=== PATIENT | female | born 1975 | race Caucasian/White ===

== ENCOUNTER → 2016-07-30 | Outpatient (REF) | payer OTHER, MEDICAID ==
[2016-08-02 00:19] LABS: Lyme Disease IgG/IgM Antibodie <0.91 ISR (0.00-0.90); Lyme Disease IgM Ab Quantitati <0.80 index (0.00-0.79)
== END ==
LOC: M SFHCLERA 19:19
PROVIDERS: ATTEND Nurse Practitioner Family
DX: L03.114 Cellulitis of left upper limb (principal)

== ENCOUNTER → 2017-01-20 | Outpatient (CLI) | payer OTHER ==
[2017-01-20 10:13] LABS: BASO # 0.1 10^3/uL (0.0-0.2); BASO % 0.6 % (0.0-1.0); EOS # 0.2 10^3/uL (0.0-0.50); EOS % 2.2 % (0.0-3.0); IMMATURE GRANULOCYTE % 0.4 % (0-0); LYMPH # 2.3 10^3/uL (1.5-4.5); MEAN CORPUSCULAR HEMOGLOBIN 30.9 pg (27.0-33.0); MEAN CORPUSCULAR HGB CONC 33.7 g/dl (32.0-36.5); MEAN CORPUSCULAR VOLUME 91.7 fl (80.0-96.0); MONO # 0.6 10^3/uL (0.0-0.8); MONO % 5.9 % (0.0-5.0); NEUTROPHILS # 6.4 10^3/uL (1.8-7.7); NEUTROPHILS % 66.9 % (36.0-66.0); PLATELET COUNT, AUTOMATED 337 10^3/uL (150-450); WHITE BLOOD COUNT 9.6 10^3/uL (4.0-10.0)
[2017-01-20 10:57] LABS: VITAMIN B12 LEVEL 695 PG/ML (247-911)
[2017-01-20 11:00] LABS: ALBUMIN 3.4 GM/DL (3.2-5.2); ALBUMIN/GLOBULIN RATIO 0.94 (1.00-1.93); ALKALINE PHOSPHATASE 108 U/L (45-117); ALT/SGPT 33 U/L (12-78); ANION GAP 7 MEQ/L (8-16); AST/SGOT 16 U/L (7-37); BILIRUBIN,TOTAL 0.3 MG/DL (0.2-1.0); BLOOD UREA NITROGEN 13 MG/DL (7-18); CALCIUM LEVEL 8.6 MG/DL (8.5-10.1); CARBON DIOXIDE LEVEL 25 MEQ/L (21-32); CHLORIDE LEVEL 107 MEQ/L (98-107); CHOLESTEROL LEVEL 224 MG/DL (<200); CREATININE FOR GFR 0.72 MG/DL (0.55-1.02); GLOMERULAR FILTRATION RATE > 60.0 (>58); GLUCOSE, FASTING 99 MG/DL (70-105); POTASSIUM SERUM 4.1 MEQ/L (3.5-5.1); SODIUM LEVEL 139 MEQ/L (136-145); TRIGLYCERIDES LEVEL 170 MG/DL (<150)
== END ==
LOC: M LAB 09:49
PROVIDERS: ATTEND Registered Nurse Psychiatric/Mental Health
DX: F31.81 Bipolar II disorder (principal)

== ENCOUNTER → 2017-02-09 | Outpatient (CLI) | payer OTHER | LOC: M LAB 07:17 | PROVIDERS: ATTEND Registered Nurse Psychiatric/Mental Health | DX: F31.81 Bipolar II disorder (principal) ==

== ENCOUNTER → 2017-02-18 | Outpatient (CLI) | payer OTHER | LOC: M LAB 08:42 | PROVIDERS: ATTEND Registered Nurse Psychiatric/Mental Health | DX: F31.81 Bipolar II disorder (principal); Z79.899 Other long term (current) drug therapy ==

== ENCOUNTER → 2017-04-13 | Outpatient (CLI) | payer OTHER ==
[2017-04-13 10:24] LABS: ALBUMIN 3.4 GM/DL (3.2-5.2); ALBUMIN/GLOBULIN RATIO 0.92 (1.00-1.93); ALKALINE PHOSPHATASE 110 U/L (45-117); ALT/SGPT 41 U/L (12-78); AST/SGOT 22 U/L (7-37); BILIRUBIN,DIRECT 0.1 MG/DL (0.0-0.2); BILIRUBIN,TOTAL 0.5 MG/DL (0.2-1.0); TOTAL PROTEIN 7.1 GM/DL (6.4-8.2)
[2017-04-13 10:28] LABS: LITHIUM LEVEL 0.99 MEQ/L (0.60-1.20)
== END ==
LOC: M LAB 09:10
DX: F31.81 Bipolar II disorder (principal)
CPT/HCPCS: 80178

== ENCOUNTER → 2017-04-16 | Outpatient (REF) | payer OTHER, MEDICAID ==
[2017-04-16 16:38] LABS: FREE T4 0.89 NG/DL (0.76-1.46)
[2017-04-16 18:15] LABS: CHLAMYDIA DNA AMPLIFICATION NEGATIVE (NEGATIVE); GC DNA AMPLIFICATION NEGATIVE (NEGATIVE)
== END ==
LOC: M SFHCLERA 11:41
DX: Z97.5 Presence of (intrauterine) contraceptive device (principal); R94.6 Abnormal results of thyroid function studies
CPT/HCPCS: 84443

== ENCOUNTER → 2017-04-29 | Outpatient (REF) | LOC: M SMT 10:33 | DX: Z02.9 Encounter for administrative examinations, unspecified (principal) ==

== ENCOUNTER → 2017-10-05 | Outpatient (CLI) | payer OTHER ==
[2017-10-05 12:21] LABS: FOLATE 9.7 NG/ML; VITAMIN B12 LEVEL 334 PG/ML
[2017-10-05 12:40] LABS: ALBUMIN 3.4 GM/DL (3.2-5.2); ALBUMIN/GLOBULIN RATIO 0.94 (1.00-1.93); ALKALINE PHOSPHATASE 78 U/L (45-117); ALT/SGPT 31 U/L (12-78); ANION GAP 11 MEQ/L (8-16); AST/SGOT 18 U/L (7-37); BILIRUBIN,TOTAL 0.3 MG/DL (0.2-1.0); BLOOD UREA NITROGEN 14 MG/DL (7-18); CALCIUM LEVEL 8.6 MG/DL (8.5-10.1); CARBON DIOXIDE LEVEL 18 MEQ/L (21-32); CHLORIDE LEVEL 113 MEQ/L (98-107); CPK CREATINE PHOSPHOKINASE 29 U/L (26-192); CREATININE FOR GFR 0.76 MG/DL (0.55-1.30); FREE T4 1.04 NG/DL (0.76-1.46); GLOMERULAR FILTRATION RATE > 60.0 (>58); GLUCOSE, FASTING 89 MG/DL (70-100); RHEUMATOID FACTOR QUANT < 10.0 IU/ML (<15.0); SODIUM LEVEL 142 MEQ/L (136-145)
[2017-10-05 15:35] LABS: ESTIMATED AVERAGE GLUCOSE 105 MG/DL (60-110); HEMOGLOBIN A1c 5.3 %
[2017-10-05 15:47] LABS: BASO % 0.4 % (0.0-1.0); EOS # 0.3 10^3/uL (0.0-0.50); EOS % 2.8 % (0.0-3.0); HEMATOCRIT 42.1 % (36.0-47.0); HEMOGLOBIN 14.2 g/dl (12.0-15.5); IMMATURE GRANULOCYTE % 0.4 % (0-3.0); LYMPH # 2.6 10^3/uL (1.5-4.5); LYMPH % 28.1 % (24.0-44.0); MEAN CORPUSCULAR HEMOGLOBIN 30.9 pg (27.0-33.0); MEAN CORPUSCULAR HGB CONC 33.7 g/dl (32.0-36.5); MEAN CORPUSCULAR VOLUME 91.5 fl (80.0-96.0); MONO # 0.5 10^3/uL (0.0-0.8); MONO % 5.7 % (0.0-5.0); NEUTROPHILS # 5.7 10^3/uL (1.8-7.7); NEUTROPHILS % 62.6 % (36.0-66.0); PLATELET COUNT, AUTOMATED 281 10^3/uL (150-450); RED CELL DISTRIBUTION WIDTH 12.6 % (11.5-14.5); WHITE BLOOD COUNT 9.2 10^3/uL (4.0-10.0)
[2017-10-05 16:15] LABS: ERYTHROCYTE SEDIMENTATION RATE 15 mm/hr (0-20)
[2017-10-08 10:47] LABS: ANTINUCLEAR ANTIBODIES DIRECT Negative (Negative); STRIATIONAL ANTIBODIES Negative (Neg:<1:40); VITAMIN E(ALPHA TOCOPHEROL) 10.5 mg/L (7.0-25.1); VITAMIN E(GAMMA TOCOPHEROL) 1.8 mg/L (0.5-5.5)
[2017-10-11 14:28] LABS: ALDOLASE 5.2 U/L (3.3-10.3); VITAMIN B1 LEVEL WHOLE BLOOD 114.9 nmol/L (66.5-200.0); VITAMIN B6,PYRIDOXAL PHOSPHATE 2.7 ug/L (2.0-32.8)
[2017-10-11 14:28] LABS: ACETYLCHOLINE RCPTOR BINDING A < 0.03 nmol/L (0.00-0.24)
== END ==
LOC: M LAB 10:30
DX: M62.81 Muscle weakness (generalized) (principal); G70.9 Myoneural disorder, unspecified; E11.9 Type 2 diabetes mellitus without complications; Z13.29 Encounter for screening for other suspected endocrine disorder
CPT/HCPCS: 82550

== ENCOUNTER → 2017-10-21 | Outpatient (REF) | payer OTHER, MEDICAID | LOC: M SFHCLERA 15:04 | DX: R30.0 Dysuria (principal) ==

== ENCOUNTER → 2018-07-29 | Outpatient (REF) | payer OTHER, MEDICAID ==
[2018-07-29 20:25] LABS: BASO # 0.1 10^3/uL (0.0-0.2); BASO % 0.7 % (0.0-1.0); EOS # 0.1 10^3/uL (0.0-0.50); EOS % 0.8 % (0.0-3.0); HEMATOCRIT 46.6 % (36.0-47.0); HEMOGLOBIN 15.8 g/dl (12.0-15.5); LYMPH # 2.5 10^3/uL (1.5-4.5); LYMPH % 27.8 % (24.0-44.0); MEAN CORPUSCULAR HEMOGLOBIN 32.5 pg (27.0-33.0); MEAN CORPUSCULAR HGB CONC 33.9 g/dl (32.0-36.5); MEAN CORPUSCULAR VOLUME 95.9 fl (80.0-96.0); MONO # 0.6 10^3/uL (0.0-0.8); MONO % 7.2 % (0.0-5.0); NEUTROPHILS # 5.7 10^3/uL (1.8-7.7); NEUTROPHILS % 63.3 % (36.0-66.0); PLATELET COUNT, AUTOMATED 280 10^3/uL (150-450); RED BLOOD COUNT 4.86 10^6/uL (4.00-5.40); WHITE BLOOD COUNT 8.9 10^3/uL (4.0-10.0)
== END ==
LOC: M SFHCLERA 15:12
PROVIDERS: ATTEND Family Medicine
DX: N63.10 Unspecified lump in the right breast, unspecified quadrant (principal)

== ENCOUNTER → 2018-08-12 | Outpatient (CLI) | payer MEDICAID, OTHER ==
--- NOTE | 2018-08-12 15:01 | REP ---
DIGITAL DIAGNOSTIC BILATERAL MAMMOGRAPHY WITH CAD, 3D TOMOGRAPHY, AND FOCUSED RIGHT BREAST SONOGRAPHY: HISTORY: Right breast lump at approximately 11-o'clock position. The lump is present times 1 week and is mobile and tender. No comparison breast imaging. A remote prior history of right breast abscess. TECHNIQUE: A skin marker is affixed to the skin at the site of the palpable lump which projects at the level of the right axilla. Routine views of the right breast are augmented by magnified focal spot compression images and 3D tomography. MAMMOGRAPHIC FINDINGS: Scattered fibroglandular elements are seen bilaterally. Normal appearing lymph nodes are noted in each axilla. No masses seen at the site of the palpable lump. The adjacent breast parenchyma is extensively fat replaced at the site of the lump. No microcalcification or architectural distortion is seen in either breast. SONOGRAPHIC FINDINGS: The right breast in the axillary tail is scanned sonographically. Fairly homogeneous breast parenchymal texture is seen. No soft tissue mass is seen. No cyst or abnormal lymph node is appreciated. IMPRESSION: BIRADS 1: BI-RADS/ACR category 1 mammogram. Negative Mammogram. BIRADS category 1 negative bilateral breast imaging findings. Clinical followup is advised. This negative report should not dissuade one from biopsy of a palpable lump depending on its clinical characteristics. The patient states she had a clinical breast exam in June 2018. The patient letter being requested M2. This mammogram was interpreted with the aid of an FDA-approved computer-aided detection system. Electronically Signed by Marlo Ashford MD 08/12/2018 03:10 P
== END ==
LOC: M RAD 12:56
PROVIDERS: ATTEND Family Medicine
DX: N63.10 Unspecified lump in the right breast, unspecified quadrant (principal)
CPT/HCPCS: 76642; 77066; G0279

== ENCOUNTER → 2018-12-09 | Outpatient (REF) | payer OTHER, MEDICAID ==
[2018-12-09 13:42] LABS: FOLLICLE STIMULATING HORMONE 5.1 mIU/mL; FREE T4 1.04 NG/DL (0.76-1.46); LUTEINIZING HORMONE 6.4 mIU/mL; THYROID STIMULATING HORMONE 1.73 uIU/ML (0.358-3.740)
[2018-12-15 10:35] LABS: TESTOSTERONE FREE (DIRECT) 1.5 pg/mL (0.0-4.2)
== END ==
LOC: M LAB REF 12:32
PROVIDERS: ATTEND Obstetrics & Gynecology
DX: F32.81 Premenstrual dysphoric disorder (principal)

== ENCOUNTER 2018-12-29 09:25 | Day surgery (SDC) | payer OTHER ==
[~2018-12-29] VITALS: Ht 154.9 cm; Wt 95.6 kg
[~2018-12-29 09:25] MED LIST: CHOL100029 PO; LR 1,000 ML IV ONE; MELATAB2 PO; MELO15TA28 PO; METH27TA5 PO; MOOD400T PO; PROP10TA56 PO; TOPI200T7 PO; TRAM50TA2 PO; VIIB40TA PO; ceFAZolin SOD 2 GM in IV 1 EA IV ONE
[2018-12-29 10:17] LABS: HEMATOCRIT 43.7 % (36.0-47.0); HEMOGLOBIN 14.8 g/dl (12.0-15.5); MEAN CORPUSCULAR HEMOGLOBIN 31.9 pg (27.0-33.0); MEAN CORPUSCULAR HGB CONC 33.9 g/dl (32.0-36.5); MEAN CORPUSCULAR VOLUME 94.2 fl (80.0-96.0); PLATELET COUNT, AUTOMATED 291 10^3/uL (150-450); RED BLOOD COUNT 4.64 10^6/uL (4.00-5.40); WHITE BLOOD COUNT 7.8 10^3/uL (4.0-10.0)
[2018-12-29] MEDS ORDERED: BUPIVACAINE/EPIN 0.25% 30 ML VIAL As Ordered ONE (10:25)
[2018-12-29 10:38] LABS: BLOOD UREA NITROGEN 10 MG/DL (7-18); CALCIUM LEVEL 8.7 MG/DL (8.5-10.1); CARBON DIOXIDE LEVEL 22 MEQ/L (21-32); CHLORIDE LEVEL 113 MEQ/L (98-107); CREATININE FOR GFR 0.79 MG/DL (0.55-1.30); GLOMERULAR FILTRATION RATE > 60.0 (>58); GLUCOSE, FASTING 106 MG/DL (70-100); POTASSIUM SERUM 3.8 MEQ/L (3.5-5.1); SODIUM LEVEL 142 MEQ/L (136-145)
[2018-12-29] MEDS ORDERED: FLUORESCEIN 10% (100MG/ML) 5 ML VIAL As Ordered ONE (11:47)
[2018-12-29] MEDS ORDERED: ROCURONIUM BROMIDE 50 MG/5 ML VIAL As Ordered ONE (11:50)
[2018-12-29] MEDS ORDERED: PROPOFOL 200 MG/20 ML VIAL As Ordered ONE (11:50)
[2018-12-29] MEDS ORDERED: SUGAMMADEX SODIUM 500 MG/5 ML VIAL (BRIDION) As Ordered ONE (11:50)
[2018-12-29] MEDS ORDERED: dexameTHASONE 4 MG/ML 1ML VIAL (J1100) As Ordered ONE (11:50)
[2018-12-29] MEDS ORDERED: MIDAZOLAM INJ 2 MG/2 ML VIAL (J2250) As Ordered ONE (11:50)
[2018-12-29] MEDS ORDERED: HYDROmorphone HCL 2 MG/ML 1ML VIAL (J1170) As Ordered ONE (11:50)
[2018-12-29] MEDS ORDERED: ACETAMINOPHEN 1000MG 100ML IV BTL (OFIRMEV) (J0131 PER 10MG) As Ordered ONE (11:50)
[2018-12-29] MEDS ORDERED: LIDOCAINE 2% INJ 100 MG/5 ML SDV (FOR ANES.) As Ordered ONE (11:50)
[2018-12-29] MEDS ORDERED: fentaNYL 100 MCG/2 ML INJECTION (J3010) As Ordered ONE (11:50)
[2018-12-29] MEDS ORDERED: KETOROLAC 60 MG/2 ML VIAL (J1885) As Ordered ONE (12:20)
[2018-12-29] MEDS ORDERED: ONDANSETRON 4MG/2ML VIAL (J2405) As Ordered ONE (12:20)
[2018-12-29] MEDS ORDERED: MEPERIDINE INJ 25 MG/ML VIAL (J2175) IV PRN (13:30)
[2018-12-29] MEDS ORDERED: METOCLOPRAMIDE INJ 10MG/2ML VIAL (J2765) IV PRN (13:30)
[2018-12-29] MEDS ORDERED: ONDANSETRON 4MG/2ML VIAL (J2405) IV PRN (13:30)
[2018-12-29] MEDS ORDERED: LR 1,000 ML IV SCH ×2 (13:30→14:31)
[2018-12-29] MEDS ORDERED: oxyCODONE 5MG TAB PO PRN (13:30)
[2018-12-29] MEDS: fentaNYL 100 MCG/2 ML INJECTION (J3010) IV PRN ×4 (13:35→13:50)
--- NOTE | 2018-12-29 13:36 | RO ---
DATE OF PROCEDURE: 12/29/2018 Lashay is a 43-year-old female with a longstanding history of dysmenorrhea, pelvic pain, and premenopausal symptoms. After counseling a decision was made to proceed with a total robotic hysterectomy, removal of both ovaries and tubes and cystoscopy. PREOPERATIVE DIAGNOSES: 1. Dysmenorrhea. 2. Pelvic pain. 3. Premenstrual symptoms. POSTOPERATIVE DIAGNOSES: 1. Dysmenorrhea. 2. Pelvic pain. 3. Premenstrual symptoms. 4. Unicornuate uterus with normal-appearing ovaries. PROCEDURE: 1. Robotic-assisted total hysterectomy. 2. Bilateral salpingo-oophorectomy. 3. Cystoscopy. SURGEON: Efren Jessica DO DIE OPERATOR: FLORINA Montes ANESTHESIA: General. COMPLICATIONS: None. ESTIMATED BLOOD LOSS: Less than 50 mL. FINDINGS: A unicornuate uterus. Normal-appearing ovaries. On cystoscopy bilateral ureteral jets noted. No evidence of any bladder or urethral injury. PROCEDURE: After obtaining informed consent, the patient was taken to the operating room where general anesthetic was found to be adequate. She was then draped and prepped in the usual sterile fashion in dorsal lithotomy position. At this point, HUMI II uterine manipulator was placed. Attention was then turned to the abdomen where the abdomen was insufflated with CO2 gas through a Veress needle to approximately 3.5 liters. We then placed an 8 mm supraumbilical incision under direct visualization then two left lateral 8 mm ports were placed for robotic arm one and the assist port on the opposite side. On the right, an 8 mm port was placed for robotic arm two. The patient was then placed in steep Trendelenburg. The robot was brought to the patient's right side and docked in the usual fashion. After docking the camera the system was set to targeting. After passing the targeting, all the other arms were then docked. A vessel sealer was placed in arm one, bipolar grasper in arm two. I then unscrubbed and went to the patient's side and began the hysterectomy. Upon evaluating the pelvis and abdomen, the above-noted findings were found. At this point I then turned my attention to the right side where the right fallopian tube was found intact with the right ovary. At this point the infundibulopelvic ligament was cauterized using the vessel sealer. We then took serial bites to include the round ligament all the way down to the uterine artery. The opposite side did not have any fallopian tube or adnexal structure however, the left ovary was found on the side with the infundibulopelvic ligament intact. At this point the vessel sealer was used and the infundibulopelvic ligament was cauterized and cut removing that ovary. We then secured the uterine arteries. The anterior leaflet of the broad ligament was then dissected to create a bladder flap. The posterior aspect was dissected off in a similar fashion. Anterior posterior colpotomy was then performed. The uterus as well as bilateral ovaries were removed through the vagina. At this point, a sponge lap was placed to maintain pneumoperitoneum. The vessel sealer was removed, a needle rolloff driver was inserted and using a V-Loc suture the vaginal cuff was then closed in a running fashion. The peritoneum over the vaginal cuff was then closed. Pelvis copiously irrigated with normal saline. Good hemostasis noted. I then rescrubbed and went to the patient's side, retrograde filled the bladder with 230 mL of normal saline. 1 mL of Furacin was given by the anesthesiologist to help with the cystoscopy. At this point the cystoscope was inserted into the bladder. Bilateral ureteral jets were noted. No evidence of any bladder injury noted. At this point, the cystoscope was removed and the Mahmood catheter placed back in the bladder. I then turned my attention to the abdomen where the robotic ports were then closed using #3-0 Vicryl in a subcuticular fashion. 0.25% Marcaine was placed for postoperative pain. The patient tolerated procedure well. She was then transferred to the recovery room in stable condition.
[2018-12-29 14:22] VITALS: BP 121/83
[2018-12-29] MEDS ORDERED: SIMETHICONE 80 MG CHEW TAB PO PRN (14:31)
[2018-12-29 14:50] VITALS: BP 123/82
[2018-12-29 15:54] VITALS: BP 122/81
[2018-12-29] MEDS: PERCOCET 5MG/325MG TAB PO PRN ×2 (16:25→21:17)
[2018-12-29 17:37] VITALS: BP 132/80
[2018-12-29 18:20] VITALS: BP 130/85
[2018-12-29] MEDS: IBUPROFEN 800 MG TAB PO SCH (21:17)
[2018-12-29 22:00] VITALS: BP 131/78
[2018-12-30 02:00] VITALS: BP 128/81
[2018-12-30] MEDS: IBUPROFEN 800 MG TAB PO SCH ×2 (03:09→08:13)
[2018-12-30 06:00] VITALS: BP 128/85
[2018-12-30 10:00] VITALS: BP 128/83
[2018-12-30] MEDS: PERCOCET 5MG/325MG TAB PO PRN (12:54)
[2018-12-30 13:26] VITALS: BP 121/80
== END 2018-12-30 14:00 | disposition home or self-care (01) ==
LOC: M SDC 09:25 → M MSPAV 14:22 → M SDC 12-30 14:00
PROVIDERS: ATTEND Obstetrics & Gynecology
DX: N72 Inflammatory disease of cervix uteri (principal); N94.5 Secondary dysmenorrhea; R10.2 Pelvic and perineal pain; Q51.4 Unicornate uterus; F41.9 Anxiety disorder, unspecified; F32.9 Major depressive disorder, single episode, unspecified; F43.10 Post-traumatic stress disorder, unspecified; K58.9 Irritable bowel syndrome, unspecified; Z86.14 Personal history of Methicillin resistant Staphylococcus aureus infection; M19.90 Unspecified osteoarthritis, unspecified site; M54.9 Dorsalgia, unspecified; M79.7 Fibromyalgia; G43.909 Migraine, unspecified, not intractable, without status migrainosus; Z79.899 Other long term (current) drug therapy; Z87.891 Personal history of nicotine dependence; F11.11 Opioid abuse, in remission; Z96.641 Presence of right artificial hip joint
CPT/HCPCS: 36415; 58571; 80048; 81025; 85027; 86850; 86900; 86901; 88307; J0131; J0690; J1100; J1170; J1885; J2250; J2405; J3010

== ENCOUNTER → 2019-01-19 | Outpatient (REF) | payer OTHER, MEDICAID ==
[~2019-01-19] MED LIST changes: -LR 1,000 ML IV ONE; -ceFAZolin SOD 2 GM in IV 1 EA IV ONE
[2019-01-19 12:17] LABS: FREE T4 1.14 NG/DL (0.76-1.46); THYROID STIMULATING HORMONE 1.48 uIU/ML (0.358-3.740)
== END ==
LOC: M SFHCLERA 09:36
PROVIDERS: ATTEND Family Medicine
DX: R53.83 Other fatigue (principal)

== ENCOUNTER → 2019-05-10 | Outpatient (REF) | payer OTHER ==
[2019-05-10 16:31] LABS: BASO % 0.5 % (0.0-1.0); EOS # 0.1 10^3/uL (0.0-0.5); EOS % 1.3 % (0.0-3.0); HEMATOCRIT 44.3 % (36.0-47.0); HEMOGLOBIN 14.2 g/dl (12.0-15.5); LYMPH % 31.9 % (24.0-44.0); MEAN CORPUSCULAR HEMOGLOBIN 30.9 pg (27.0-33.0); MEAN CORPUSCULAR HGB CONC 32.1 g/dl (32.0-36.5); MEAN CORPUSCULAR VOLUME 96.3 fl (80.0-96.0); MONO # 0.4 10^3/uL (0.0-0.8); MONO % 5.6 % (0.0-5.0); NEUTROPHILS # 3.8 10^3/uL (1.5-8.5); NEUTROPHILS % 60.4 % (36.0-66.0); PLATELET COUNT, AUTOMATED 190 10^3/uL (150-450); WHITE BLOOD COUNT 6.2 10^3/uL (4.0-10.0)
[2019-05-10 17:20] LABS: ALBUMIN 3.6 GM/DL (3.2-5.2); ALT/SGPT 30 U/L (12-78); BILIRUBIN,TOTAL 0.2 MG/DL (0.2-1.0); BLOOD UREA NITROGEN 13 MG/DL (7-18); CARBON DIOXIDE LEVEL 24 MEQ/L (21-32); CHLORIDE LEVEL 112 MEQ/L (98-107); CPK CREATINE PHOSPHOKINASE 45 U/L (26-192); CREATININE FOR GFR 0.82 MG/DL (0.55-1.30); GLOMERULAR FILTRATION RATE > 60.0 (>58); GLUCOSE, FASTING 88 MG/DL (70-100); POTASSIUM SERUM 3.7 MEQ/L (3.5-5.1); SODIUM LEVEL 142 MEQ/L (136-145); TOTAL PROTEIN 7.1 GM/DL (6.4-8.2)
== END ==
LOC: M SFHCLERA 10:56
PROVIDERS: ATTEND Family Medicine
DX: R53.83 Other fatigue (principal)

== ENCOUNTER → 2023-08-26 | Outpatient (REF) | payer OTHER ==
[~2023-08-26] MED LIST changes: +MELA3TAB10 PO; -MELATAB2 PO; +MOOD PLUS SAM-400 MG PO; -MOOD400T PO
[2023-08-26 18:37] LABS: ALBUMIN 2.8 G/DL (3.2-5.2); ALKALINE PHOSPHATASE 90 U/L (46-116); ALT/SGPT 15 U/L (7.0-40); AST/SGOT 11 U/L (<34); BILIRUBIN,TOTAL < 0.2 MG/DL (0.3-1.2); BLOOD UREA NITROGEN 21 MG/DL (9-23); CALCIUM LEVEL 8.5 MG/DL (8.5-10.1); CARBON DIOXIDE LEVEL 28 MMOL/L (20-31); CHLORIDE LEVEL 111 MMOL/L (98-107); CHOLESTEROL LEVEL 159 MG/DL (<200); CREATININE FOR GFR 0.59 MG/DL (0.55-1.30); GLOMERULAR FILTRATION RATE > 60.0 (>58); GLUCOSE, FASTING 94 MG/DL (60-100); HDL CHOLESTEROL 45.3 MG/DL (>40); LDL CHOLESTEROL 69.7 MG/DL (<100); NON-HDL-C 113.7 MG/DL; POTASSIUM SERUM 4.9 MMOL/L (3.5-5.1); SODIUM LEVEL 142 MMOL/L (136-145); TOTAL PROTEIN 6.2 G/DL (5.7-8.2); TRIGLYCERIDES LEVEL 220 MG/DL (<150)
[2023-08-26 18:39] LABS: TOTAL 25(OH) VITAMIN D 32.7 NG/ML (20.0-100.0)
== END ==
LOC: M SFHCLERA 08:55
PROVIDERS: ATTEND Family Medicine
DX: E66.9 Obesity, unspecified (principal); E55.9 Vitamin D deficiency, unspecified

== ENCOUNTER → 2023-09-11 | Outpatient (REF) | payer OTHER | LOC: M SFHCLERA 07:12 | PROVIDERS: ATTEND Family Medicine | DX: Z53.9 Procedure and treatment not carried out, unspecified reason (principal) ==